=== PATIENT | male | born 1995 | race Caucasian/White ===

== ENCOUNTER 2024-04-26 13:50 | Day surgery (SDC) | payer OTHER ==
[2024-04-25 10:55] VITALS: BMI 29.9
[2024-04-26 14:14] VITALS: TEMP 97.1
[2024-04-26 15:18] VITALS: BP 112/77; PULSE 67; RESP 18
== END 2024-04-26 15:49 | disposition home or self-care (01) ==
LOC: FASU-ENDO 13:50 → EDBD 16:30
PROVIDERS: ATTEND Internal Medicine Gastroenterology
PROC: 0DB68ZX Excision of Stomach, Via Natural or Artificial Opening Endoscopic, Diagnostic (ICD-10-PCS; 2024-04-26)
PROC: 0DB48ZX Excision of Esophagogastric Junction, Via Natural or Artificial Opening Endoscopic, Diagnostic (ICD-10-PCS; 2024-04-26)
PROC: 0DB98ZX Excision of Duodenum, Via Natural or Artificial Opening Endoscopic, Diagnostic (ICD-10-PCS; principal; 2024-04-26 14:58)
DX: K29.50 Unspecified chronic gastritis without bleeding (principal); K21.00 Gastro-esophageal reflux disease with esophagitis, without bleeding; R10.13 Epigastric pain
CPT/HCPCS: 88305-TC; 88342-TC